=== PATIENT | male | born 2000 | race American Indian/Alaskan Native ===

== ENCOUNTER 2021-12-04 12:02 | Emergency (ER) | payer SELFPAY ==
[2021-12-04 13:43] VITALS: BP 156/92
[2021-12-04] MEDS ORDERED: TETANUS,DIPH,PERTUSS(ACELL) VACCINE 0.5 ML SYRINGE IM ONE (14:48)
--- NOTE | 2021-12-04 14:52 | Emergency Department Report ---
ED General Adult HPI - General Chief complaint: Extremity Injury, Upper Stated complaint: CUT ON FINGER Time Seen by Provider: 12/04/21 14:19 Source: patient Mode of arrival: Ambulatory Limitations: No Limitations - History of Present Illness Initial comments: 21-year-old -[place] male patient presents with complaints of left index finger laceration x2 days ago. Patient states he cut his finger on a machine at work. He denies any crushing injury or bony pain. He is unsure of his last tetanus vaccination. He also states he has full range of motion of the finger and normal sensation. No past medical history or known drug allergies per patient Severity scale (0 -10): 0 - Related Data Previous Rx's Medication Instructions Recorded Last Taken Type Ibuprofen [Motrin 800 MG tab] 800 mg PO Q8HR PRN #15 tablet 12/04/21 Unknown Rx Mupirocin [Bactroban 2% OINT] 1 applic TP TID 7 Days #1 tube 12/04/21 Unknown Rx Sulfamethoxazole/Trimethoprim 1 each PO BID 10 Days #20 tab 12/04/21 Unknown Rx [Bactrim DS TAB] Allergies Allergy/AdvReac Type Severity Reaction Status Date / Time No Known Allergies Allergy Unverified 12/04/21 13:42 ED Review of Systems ROS: Stated complaint: CUT ON FINGER Other details as noted in HPI Musculoskeletal: denies: joint swelling Skin: denies: change in color Neurological: denies: numbness, paresthesias ED Past Medical Hx - Medications Home Medications: Home Medications Medication Instructions Recorded Confirmed Last Taken Type Ibuprofen [Motrin 800 MG tab] 800 mg PO Q8HR PRN #15 tablet 12/04/21 Unknown Rx Mupirocin [Bactroban 2% OINT] 1 applic TP TID 7 Days #1 tube 12/04/21 Unknown R x Sulfamethoxazole/Trimethoprim 1 each PO BID 10 Days #20 tab 12/04/21 Unknown Rx [Bactrim DS TAB] ED Physical Exam - General Limitations: No Limitations General appearance: alert, in no apparent distress - Head Head exam: Present: atraumatic, normocephalic - Eye Eye exam: Present: normal appearance - Respiratory Respiratory exam: Absent: respiratory distress - Cardiovascular Cardiovascular Exam: Present: regular rate - Extremities Exam Extremities exam: Present: full ROM - Neurological Exam Neurological exam: Present: alert, oriented X3 - Psychiatric Psychiatric exam: Present: normal affect, normal mood - Skin Skin exam: Present: warm, dry, intact, other (Healing shave laceration noted to the left distal index finger, laceration is already healing with granulation tissue, normal capillary refill and range of motion of the finger noted; there is some tenderness to palpation) ED Course Vital Signs 12/04/21 13:42 Temperature 98.7 F Pulse Rate 65 Respiratory 14 Rate Blood Pressure 157/92 [Right] O2 Sat by Pulse 100 Oximetry ED Medical Decision Making - Medical Decision Making 21-year-old -[place] male patient presents with complaints of left index finger laceration x2 days ago. Patient states he cut his finger on a machine at work. He denies any crushing injury or bony pain. He is unsure of his last tetanus vaccination. He also states he has full range of motion of the finger and normal sensation. No past medical history or known drug allergies per patient No laceration repair and needed today given laceration is 2 days old and already healing. Will cover patient for infection given tenderness and minimal swe lling noted without purulent drainage on exam with Bactrim and mupirocin. Recommend follow-up with PCP in 3 to 5 days. Discussed in detail wound care and signs and symptoms that should prompt immediate return to the ED with patient who verbalizes understanding Critical care attestation.: If time is entered above; I have spent that time in minutes in the direct care of this critically ill patient, excluding procedure time. ED Disposition Clinical Impression: Laceration of finger, Elevated blood pressure reading in office without diagnosis of hypertension Disposition: HOME / SELF CARE / HOMELESS Is pt being admited?: No Condition: Stable Instructions: Nonsutured Laceration Care, Hypertension, Adult Prescriptions: Sulfamethoxazole/Trimethoprim [Bactrim DS TAB] 1 each PO BID 10 Days #20 tab Mupirocin [Bactroban 2% OINT] 1 applic TP TID 7 Days #1 tube Ibuprofen [Motrin 800 MG tab] 800 mg PO Q8HR PRN #15 tablet PRN Reason: pain Referrals: [facility] [Provider Group] - 3-5 Days Forms: Work/School Release Form(ED)
== END 2021-12-04 15:28 | disposition home or self-care (01) ==
LOC: ED 12:02
DX: S61.211A Laceration without foreign body of left index finger without damage to nail, initial encounter (principal); R03.0 Elevated blood-pressure reading, without diagnosis of hypertension; W31.89XA Contact with other specified machinery, initial encounter; Y93.89 Activity, other specified; Y92.89 Other specified places as the place of occurrence of the external cause; Y99.8 Other external cause status
CPT/HCPCS: 90715; 99282